=== PATIENT | male | born 1945 | race Hispanic/Latino ===

== ENCOUNTER 2016-11-14 09:04 | Inpatient (IN) | payer MEDICARE ==
[2016-11-14] MEDS ORDERED: KEPPRA 1,000 MG/NS 0.75% 100ML 1,000 MG/100 ML BAG IV ONE (09:42)
[2016-11-14] MEDS ORDERED: ZOFRAN ONE (09:59)
[2016-11-14] MEDS ORDERED: ZOFRAN IV ONE (10:06)
[2016-11-14 10:10] LABS: Basophils % (Auto) 0.4 % (0.0-1.8); Eosinophils % (Auto) 3.2 % (0.0-4.3); Hematocrit 34.2 % (35.5-45.6); Hemoglobin 11.5 gm/dl (11.8-15.2); Mean Corpuscular HGB Conc 34 % (32-34); Mean Corpuscular Hemoglobin 28 pg (28-32); Mean Corpuscular Volume 82 fl (84-94); Platelet Count 149 K/mm3 (140-440); Red Blood Count 4.18 M/mm3 (3.65-5.03); Red Cell Distribution Width 15.7 % (13.2-15.2); White Blood Count 9.6 K/mm3 (4.5-11.0)
[2016-11-14] MEDS ORDERED: ATIVAN ONE (10:12)
[2016-11-14] MEDS ORDERED: ATIVAN IV ONE (10:15)
[2016-11-14 10:20] LABS: INR 1.06 (0.87-1.13)
[2016-11-14 10:24] LABS: Anion Gap 18 mmol/L; Blood Urea Nitrogen 27 mg/dL (9-20); Calcium 9.2 mg/dL (8.4-10.2); Carbon Dioxide 18 mmol/L (22-30); Chloride 105.5 mmol/L (98-107); Glucose 130 mg/dL (75-100); Potassium 4.8 mmol/L (3.6-5.0); Sodium 137 mmol/L (137-145)
--- NOTE | 2016-11-14 10:38 | Cat Scan Report ---
CT scan of head without contrast: History: Neuro deficit. Findings: Ventricles are normal in size and midline in location. No evidence of acute ischemia, hemorrhage or mass. No extra-axial fluid collection. Mild volume loss. Normal brainstem and cerebellum. Normal sinuses and mastoid air cells. Impression: No acute intracranial abnormality.
[2016-11-14] MEDS ORDERED: NACL 0.9% 1000 ML 1,000 ML IV ONE (10:44)
[2016-11-14 10:55] LABS: Creatine Kinase MB 2.6 ng/mL (0.0-4.0)
[2016-11-14 10:57] LABS: Alanine Aminotransferase 12 units/L (7-56); Albumin 3.8 g/dL (3.9-5); Albumin/Globulin Ratio 1.1 %; Alkaline Phosphatase 58 units/L (35-129); Bilirubin,Total 0.3 mg/dL (0.1-1.2); Creatine Kinase 76 units/L (55-170); Total Protein 7.2 g/dL (6.3-8.2)
[2016-11-14 10:58] LABS: Bilirubin,Direct < 0.2 mg/dL (0-0.2)
--- NOTE | 2016-11-14 11:18 | XRay Report ---
Single view chest: History: Hypertension. Findings: Cardiomegaly. Trachea is midline. No consolidation, pneumothorax or pleural effusion. Impression: No acute cardiopulmonary findings.
[2016-11-14] MEDS ORDERED: ASPIRIN PR ONE (11:21)
--- NOTE | 2016-11-14 11:21 | Emergency Department Report ---
ED Seizure HPI - General Chief Complaint: Seizure Stated Complaint: ALTERED MENTAL STATUS Time Seen by Provider: 11/14/16 09:43 Source: family, EMS Mode of arrival: Stretcher Limitations: Altered Mental Status - History of Present Illness Initial Comments: The patient resides in an assisted living. The tennis centre manager of the assisted living called EMS because the patient was frothing and unresponsive. When the EMS arrived he didn't appear to be probably postictal but he was not any longer frothing at the mouth. Patient was unable to provide any historical information. Initially it was thought that the patient's Keppra refill from September has just been refilled and he had not been receiving it. However, the ending machine operator of the spouse tells me that "he has open bottles at home". Therefore compliance is uncertain. Material Handling Equipment Stevedore tells me that she has never seen a seizure and did not know the patient had seizures. She states that at his baseline he is able to speak coherently. He is able to ambulate using a walker despite a lack of a foot prosthesis. He has a amputation. He has a dressing on the foot that has been recently changed by a wound before and after school daycare worker. Prior to finding the patient unresponsive the ending machine operator was not aware of any illness or symptoms. Cardiac to EMS, the patient is residing in a "ordinary home converted into an assisted living". MD Complaint: seizure -: unknown Description of Episode: other (found frothing and poorly responsive) Seizure History: known seizure disorder Place: home - Related Data Home Medications Medication Instructions Recorded Confirmed Last Taken Aspirin [Aspirin BABY CHEW TAB] 81 mg PO QDAY 11/14/16 11/14/16 Unknown AtorvaSTATin [Lipitor] 20 mg PO QHS 11/14/16 11/14/16 Unknown Carvedilol [Coreg] 6.25 mg PO BID 11/14/16 11/14/16 Unknown Ferrous Sulfate [Feosol] 325 mg PO QDAY 11/14/16 11/14/16 Unknown Insulin Aspart Prot/Aspart 20 units SQ QPM 11/14/16 11/14/16 Unknown [Novolog Mix 70/30] Insulin Aspart Prot/Aspart 38 units SQ QAM 11/14/16 11/14/16 Unknown [Novolog Mix 70/30] Linagliptin [Tradjenta] 5 mg PO QDAY 11/14/16 11/14/16 Unknown Lisinopril [Zestril] 5 mg PO QDAY 11/14/16 11/14/16 Unknown Polyethylene Glycol 3350 [Miralax 17 gm PO QDAY 11/14/16 11/14/16 Unknown 3350] Tamsulosin [Flomax] 0.4 mg PO QDAY 11/14/16 11/14/16 Unknown levETIRAcetam [Keppra TAB] 500 mg PO BID 11/14/16 11/14/16 Unknown metFORMIN [Glucophage] 500 mg PO BID 11/14/16 11/14/16 Unknown Allergies Allergy/AdvReac Type Severity Reaction Status Date / Time No Known Allergies Allergy Unverified 10/10/14 16:06 ED Review of Systems ROS: Stated complaint: ALTERED MENTAL STATUS Other details as noted in HPI Comment: Unobtainable due to pts medical conditions ED Past Medical Hx - Past Medical History Hx Hypertension: Yes Hx Diabetes: Yes Hx Seizures: Yes Additional medical history: hyperlipidemia - Surgical History Additional Surgical History: R foot amputation - Social History Smoking Status: Never Smoker Substance Use Type: None - Medications Home Medications: Home Medications Medication Instructions Recorded Confirmed Last Taken Type Aspirin [Aspirin BABY CHEW TAB] 81 mg PO QDAY 11/14/16 11/14/16 Unknown History AtorvaSTATin [Lipitor] 20 mg PO QHS 11/14/16 11/14/16 Unknown History Carvedilol [Coreg] 6.25 mg PO BID 11/14/16 11/14/16 Unknown History Ferrous Sulfate [Feosol] 325 mg PO QDAY 11/14/16 11/14/16 Unknown History Insulin Aspart Prot/Aspart 20 units SQ QPM 11/14/16 11/14/16 Unknown History [Novolog Mix 70/30] Insulin Aspart Prot/Aspart 38 units SQ QAM 11/14/16 11/14/16 Unknown History [Novolog Mix 70/30] Linagliptin [Tradjenta] 5 mg PO QDAY 11/14/16 11/14/16 Unknown History Lisinopril [Zestril] 5 mg PO QDAY 11/14/16 11/14/16 Unknown History Polyethylene Glycol 3350 [Miralax 17 gm PO QDAY 11/14/16 11/14/16 Unknown History 3350] Tamsulosin [Flomax] 0.4 mg PO QDAY 11/14/16 11/14/16 Unknown History levETIRAcetam [Keppra TAB] 500 mg PO BID 11/14/16 11/14/16 Unknown History metFORMIN [Glucophage] 500 mg PO BID 11/14/16 11/14/16 Unknown History ED Physical Exam - General Limitations: Altered Mental Status General appearance: obtunded (likely able to protect airway) - Head Head exam: Present: atraumatic, normocephalic - Eye Eye exam: Present: PERRL - ENT ENT exam: Present: mucous membranes moist - Neck Neck exam: Present: normal inspection. Absent: tenderness, meningismus - Respiratory Respiratory exam: Present: normal lung sounds bilaterally. Absent: respiratory distress - Cardiovascular Cardiovascular Exam: Present: regular rate, normal rhythm. Absent: systolic murmur, diastolic murmur, rubs, gallop - GI/Abdominal GI/Abdominal exam: Present: soft, normal bowel sounds. Absent: distended, tenderness, guarding, rebound, rigid - Extremities Exam Extremities exam: Present: other (right foot amputation, no gross areas of infection either leg. Dressing present stump and not removed.) - Neurological Exam Neurological exam: Present: altered, other (exam is limited but grossly nonfocal ) - Skin Skin exam: Present: warm, dry ED Course Vital Signs 11/14/16 11/14/16 09:29 10:35 Temperature 98 F Pulse Rate 76 70 Respiratory 16 16 Rate Blood Pressure 136/75 Blood Pressure 119/56 [Left] O2 Sat by Pulse 99 99 Oximetry - Reevaluation(s) Reevaluation #1: The patient is improving as far as his level of consciousness. He is moving all extremities to stimuli. I don't note any definite focal weakness. His exam is certainly limited. He was given an aspirin suppository. His CT showed nothing acute. The onset of his condition was unknown. He was found this morning apparently postictal. He certainly would not be a candidate for TPA. So far there is no evidence of acute stroke. It is likely that he has a prolonged postictal state. He did require some Ativan to facilitate his CT. However, despite mild sedation he is waking up. The patient will be admitted by Dr. Montejo to the hospitalist service for further evaluation. He will be sent to telemetry on continuous pulse oximetry. He is now able to protect his airway. His mental status is improving. 11/14/16 11:53 ED Medical Decision Making - Lab Data Result diagrams: 11/14/16 09:45 11/14/16 09:45 - EKG Data -: EKG Interpreted by Me EKG shows normal: sinus rhythm Rate: normal - EKG Data When compared to previous EKG there are: previous EKG unavailable Interpretation: other (left anterior fascicular block/right bundle-branch block bifascicular block. Old septal infarct. Poor R-wave progression. No acute repolarization abnormality noted.) - Radiology Data Radiology results: report reviewed interpreted by me: Chest x-ray and CT the head showed no acute findings Critical care attestation.: If time is entered above; I have spent that time in minutes in the direct care of this critically ill patient, excluding procedure time. ED Disposition Clinical Impression: Postictal state, History of seizure, Recurrent seizures, Renal insufficiency, Bifascicular block Disposition: OP ADMITTED IP TO THIS HOSP Is pt being admited?: Yes Does the pt Need Aspirin: Yes Condition: Stable Referrals: PRIMARY CARE, [Primary Care Provider] - 3-5 Days Time of Disposition: 11:21
[2016-11-14] MEDS ORDERED: LOVENOX SUB-Q SCH (12:00)
--- NOTE | 2016-11-14 22:37 | History and Physical Report ---
History of Present Illness Date of examination: 11/14/16 Date of admission: 11/14/16 11:22 Chief complaint: Seizures continuos]s History of present illness: The patient resides in an assisted living. The mortgage manager of the assisted living called EMS because the patient was frothing and unresponsive. When the EMS arrived he appeared to be postictal but he was not any longer frothing at the mouth. Patient was unable to provide any historical information. Initially it was thought that the patient's Keppra refill from September has just been refilled and he had not been receiving it. However, the pattern stamper spouse tells me that "he has open bottles at home". Therefore compliance is uncertain. Pc Tech tells me that she has never seen a seizure and did not know the patient had seizures. She states that at his baseline he is able to speak coherently. He is able to ambulate using a walker despite a lack of a foot prosthesis. He has a amputation. He has a dressing on the foot that has been recently changed by a wound grounds caretaker. Prior to finding the patient unresponsive the pattern stamper was not aware of any illness or symptoms. According to EMS, the patient is residing in a "ordinary home converted into an assisted living". Past History Past Medical History: diabetes, hypertension, hyperlipidemia, seizures, other ( BPH) Past Surgical History: Other (R foot amputation) Social history: lives with family, other (Lives in assisted living facility). denies: smoking, alcohol abuse Medications and Allergies Allergies Allergy/AdvReac Type Severity Reaction Status Date / Time No Known Allergies Allergy Unverified 10/10/14 16:06 Home Medications Medication Instructions Recorded Confirmed Last Taken Type Aspirin [Aspirin BABY CHEW TAB] 81 mg PO QDAY 11/14/16 11/14/16 Unknown History AtorvaSTATin [Lipitor] 20 mg PO QHS 11/14/16 11/14/16 Unknown History Carvedilol [Coreg] 6.25 mg PO BID 11/14/16 11/14/16 Unknown History Ferrous Sulfate [Feosol] 325 mg PO QDAY 11/14/16 11/14/16 Unknown History Insulin Aspart Prot/Aspart 20 units SQ QPM 11/14/16 11/14/16 Unknown History [Novolog Mix 70/30] Insulin Aspart Prot/Aspart 38 units SQ QAM 11/14/16 11/14/16 Unknown History [Novolog Mix 70/30] Linagliptin [Tradjenta] 5 mg PO QDAY 11/14/16 11/14/16 Unknown History Lisinopril [Zestril] 5 mg PO QDAY 11/14/16 11/14/16 Unknown History Polyethylene Glycol 3350 [Miralax 17 gm PO QDAY 11/14/16 11/14/16 Unknown History 3350] Tamsulosin [Flomax] 0.4 mg PO QDAY 11/14/16 11/14/16 Unknown History levETIRAcetam [Keppra TAB] 500 mg PO BID 11/14/16 11/14/16 Unknown History metFORMIN [Glucophage] 500 mg PO BID 11/14/16 11/14/16 Unknown History Active Meds: Active Medications Enoxaparin Sodium (Lovenox) 40 mg SUB-Q QDAY@1000 MONA Review of Systems All systems: negative Constitutional: no weight loss, no weight gain Ears, nose, mouth and throat: no hoarseness, no sore throat Cardiovascular: no chest pain, no orthopnea, no palpitations, no rapid/ irregular heart beat, no syncope Respiratory: no cough with sputum, no congestion Gastrointestinal: no abdominal pain, no nausea, no vomiting, no diarrhea, no constipation Genitourinary Male: no hematuria, no flank pain, no discharge, no urinary frequency, no urinary hesitancy Musculoskeletal: no neck stiffness, no neck pain Integumentary: wounds (R leg amputation wound present), no rash (L leg hyperpigmentation pre tibial 20 cm x7 cm) Neurological: seizures, no syncope Psychiatric: no anxiety, no depression Endocrine: no cold intolerance, no heat intolerance, no polyphagia, no excessive thirst, no polydipsia, no polyuria Hematologic/Lymphatic: no easy bruising, no easy bleeding Allergic/Immunologic: no urticaria, no allergic rhinitis, no wheezing Exam - Physical Exam Narrative exam: WD WN male not postictal - Constitutional Vitals: Temp Pulse Resp BP Pulse Ox 97.6 F 66 18 129/64 98 11/14/16 20:00 11/14/16 20:00 11/14/16 20:00 11/14/16 20:00 11/14/16 20:00 General appearance: Present: no acute distress, well-nourished - EENT Eyes: Present: PERRL ENT: hearing intact, clear oral mucosa - Neck Neck: Present: supple, normal ROM - Respiratory Respiratory effort: normal Respiratory: bilateral: CTA - Cardiovascular Heart rate: 80 Rhythm: regular Heart Sounds: Present: S1 & S2. Absent: rub, click - Extremities Extremities: pulses symmetrical, No edema, abnormal (Rt foot amputation +) Peripheral Pulses: within normal limits - Abdominal General gastrointestinal: Present: soft, non-tender, non-distended, normal bowel sounds Male genitourinary: Present: normal - Integumentary Integumentary: Present: clear, warm, dry - Musculoskeletal Musculoskeletal: gait normal, strength equal bilaterally - Psychiatric Psychiatric: appropriate mood/affect, intact judgment & insight - Neurologic Neurologic: CNII-XII intact, moves all extremities - Allied Health Allied health notes reviewed: nursing, case management Results - Labs CBC & Chem 7: 11/14/16 09:45 11/15/16 09:53 Labs: Laboratory Last Values WBC 9.6 K/mm3 (4.5-11.0) 11/14/16 09:45 RBC 4.18 M/mm3 (3.65-5.03) 11/14/16 09:45 Hgb 11.5 gm/dl (11.8-15.2) L 11/14/16 09:45 Hct 34.2 % (35.5-45.6) L 11/14/16 09:45 MCV 82 fl (84-94) L 11/14/16 09:45 MCH 28 pg (28-32) 11/14/16 09:45 MCHC 34 % (32-34) 11/14/16 09:45 RDW 15.7 % (13.2-15.2) H 11/14/16 09:45 Plt Count 149 K/mm3 (140-440) 11/14/16 09:45 Lymph % (Auto) 13.5 % (13.4-35.0) 11/14/16 09:45 Swift % (Auto) 6.0 % (0.0-7.3) 11/14/16 09:45 Eos % (Auto) 3.2 % (0.0-4.3) 11/14/16 09:45 Baso % (Auto) 0.4 % (0.0-1.8) 11/14/16 09:45 Lymph # 1.3 K/mm3 (1.2-5.4) 11/14/16 09:45 Swift # 0.6 K/mm3 (0.0-0.8) 11/14/16 09:45 Eos # 0.3 K/mm3 (0.0-0.4) 11/14/16 09:45 Baso # 0.0 K/mm3 (0.0-0.1) 11/14/16 09:45 Seg Neutrophils % 76.9 % (40.0-70.0) H 11/14/16 09:45 Seg Neutrophils # 7.4 K/mm3 (1.8-7.7) 11/14/16 09:45 PT 13.7 Sec. (12.2-14.9) 11/14/16 09:45 INR 1.06 (0.87-1.13) 11/14/16 09:45 APTT 24.0 Sec. (24.2-36.6) L 11/14/16 09:45 Thrombin Time 15.8 Sec. (15.1-19.6) 11/14/16 09:45 Sodium 137 mmol/L (137-145) 11/14/16 09:45 Potassium 4.8 mmol/L (3.6-5.0) 11/14/16 09:45 Chloride 105.5 mmol/L (98-107) 11/14/16 09:45 Carbon Dioxide 18 mmol/L (22-30) L 11/14/16 09:45 Anion Gap 18 mmol/L 11/14/16 09:45 BUN 27 mg/dL (9-20) H 11/14/16 09:45 Creatinine 2.0 mg/dL (0.8-1.5) H 11/14/16 09:45 Estimated GFR 33 ml/min 11/14/16 09:45 BUN/Creatinine Ratio 13.50 % 11/14/16 09:45 Glucose 130 mg/dL (75-100) H 11/14/16 09:45 POC Glucose 98 (70-105) 11/14/16 20:58 Calcium 9.2 mg/dL (8.4-10.2) 11/14/16 09:45 Magnesium 2.0 mg/dL (1.7-2.3) 11/14/16 08:48 Total Bilirubin 0.3 mg/dL (0.1-1.2) 11/14/16 08:48 Direct Bilirubin < 0.2 mg/dL (0-0.2) 11/14/16 08:48 AST 16 units/L (5-40) 11/14/16 08:48 ALT 12 units/L (7-56) 11/14/16 08:48 Alkaline Phosphatase 58 units/L (35-129) 11/14/16 08:48 Total Creatine Kinase 76 units/L (55-170) 11/14/16 08:48 CK-MB (CK-2) 2.6 ng/mL (0.0-4.0) 11/14/16 08:48 CK-MB (CK-2) Rel Index 3.4 (0-4) 11/14/16 08:48 Troponin T < 0.010 ng/mL (0.00-0.029) 11/14/16 09:45 Total Protein 7.2 g/dL (6.3-8.2) 11/14/16 08:48 Albumin 3.8 g/dL (3.9-5) L 11/14/16 08:48 Albumin/Globulin Ratio 1.1 % 11/14/16 08:48 BMP 11/15/16 09:53 Sodium 141 Potassium 4.2 Chloride 106.3 Carbon Dioxide 22 BUN 23 H Creatinine 1.8 H Glucose 199 H Calcium 9.1 - Imaging and Cardiology EKG: report reviewed CT Scan - head: report reviewed (NAF) Assessment and Plan Advance Directives: Yes (Full code) VTE prophylaxis?: Chemical Plan of care discussed with patient/family: Yes - Patient Problems (1) Encephalopathy acute Current Visit: Yes Status: Acute Plan to address problem: Sec to postictal state.Should resolve spontaneously (2) Recurrent seizures Current Visit: Yes Status: Acute Plan to address problem: To be more compliant with Keppra.Increase Keppra to 750 q12 h (3) IDDM (insulin dependent diabetes mellitus) Current Visit: Yes Status: Chronic Plan to address problem: Cont his home insulin and coverage (4) HTN (hypertension) Current Visit: Yes Status: Chronic Qualifiers: Hypertension type: essential hypertension Qualified Code(s): I10 - Essential (primary) hypertension Plan to address problem: cont antihypertensives (5) BPH (benign prostatic hyperplasia) Current Visit: Yes Status: Chronic Qualifiers: Prostatic enlargement morphology: non-nodular Lower urinary tract symptom presence: L Plan to address problem: Cont Tamsulosin (6) Foot ulcer, right Current Visit: Yes Status: Chronic Qualifiers: Non-pressure ulcer stage: limited to breakdown of skin Qualified Code(s): L97.511 - Non-pressure chronic ulcer of other part of right foot limited to breakdown of skin Plan to address problem: Wound care (7) DVT prophylaxis Current Visit: No Status: Acute
[2016-11-14] MEDS ORDERED: DULCOLAX PR PRN (22:42)
[2016-11-14] MEDS ORDERED: ZOFRAN IV PRN (22:42)
[2016-11-14] MEDS ORDERED: MILK OF MAGNESIA PO PRN (22:42)
[2016-11-14] MEDS ORDERED: D5NS 1,000 ML IV SCH (23:00)
[2016-11-15] MEDS: NOVOLOG SUB-Q SCH ×4 (09:47→22:00)
[2016-11-15 11:05] LABS: BUN/Creatinine Ratio 12.77; Calcium 9.1 mg/dL (8.4-10.2); Chloride 106.3 mmol/L (98-107); Potassium 4.2 mmol/L (3.6-5.0)
[2016-11-15] MEDS: LOVENOX SUB-Q SCH (13:48)
[2016-11-15] MEDS: BABY ASPIRIN PO SCH (13:48)
[2016-11-15] MEDS ORDERED: HALDOL IM PRN (15:43)
--- NOTE | 2016-11-15 16:24 | Progress Note ---
Assessment and Plan Assessment and plan: 71 y/o WM with h/o diabetes, hypertension, hyperlipidemia, seizures, BPH, s/p R foot amputation resides in an assisted living brought to ER by EMS because the patient was frothing and unresponsive. Encephalopathy acute * Sec to postictal state from seizure. * PRN haldol for agitation Recurrent seizures * To be more compliant with Keppra. * Increased Keppra to 750 q12 h IDDM (insulin dependent diabetes mellitus) * Cont his home insulin coverage and ADA diet HTN (hypertension), cont antihypertensives BPH (benign prostatic hyperplasia) , Cont Tamsulosin Foot ulcer, right, Wound care DVT prophylaxis, on lovenox History Interval history: Pt seen and examined he was able to eat his lunch by himself but Got agitated and combative this afternoon, required restrain. Hospitalist Physical - Constitutional Vitals: Temp Pulse Resp BP Pulse Ox 98.2 F 50 L 20 171/77 99 11/15/16 07:30 11/15/16 07:30 11/15/16 07:30 11/15/16 07:30 11/15/16 07:30 General appearance: Present: well-nourished, other (restrained) - EENT Eyes: Present: EOM intact ENT: hearing intact, clear oral mucosa - Neck Neck: Present: supple, normal ROM - Respiratory Respiratory: bilateral: CTA - Cardiovascular Rhythm: regular Heart Sounds: Present: S1 & S2 - Extremities Extremities: No edema Extremity abnormal: other (rt foot amputated with wound dressing) Peripheral Pulses: within normal limits Results - Labs CBC & Chem 7: 11/14/16 09:45 11/15/16 09:53 Labs: Laboratory Last Values WBC 9.6 K/mm3 (4.5-11.0) 11/14/16 09:45 RBC 4.18 M/mm3 (3.65-5.03) 11/14/16 09:45 Hgb 11.5 gm/dl (11.8-15.2) L 11/14/16 09:45 Hct 34.2 % (35.5-45.6) L 11/14/16 09:45 MCV 82 fl (84-94) L 11/14/16 09:45 MCH 28 pg (28-32) 11/14/16 09:45 MCHC 34 % (32-34) 11/14/16 09:45 RDW 15.7 % (13.2-15.2) H 11/14/16 09:45 Plt Count 149 K/mm3 (140-440) 11/14/16 09:45 Lymph % (Auto) 13.5 % (13.4-35.0) 11/14/16 09:45 Howell % (Auto) 6.0 % (0.0-7.3) 11/14/16 09:45 Eos % (Auto) 3.2 % (0.0-4.3) 11/14/16 09:45 Baso % (Auto) 0.4 % (0.0-1.8) 11/14/16 09:45 Lymph # 1.3 K/mm3 (1.2-5.4) 11/14/16 09:45 Howell # 0.6 K/mm3 (0.0-0.8) 11/14/16 09:45 Eos # 0.3 K/mm3 (0.0-0.4) 11/14/16 09:45 Baso # 0.0 K/mm3 (0.0-0.1) 11/14/16 09:45 Seg Neutrophils % 76.9 % (40.0-70.0) H 11/14/16 09:45 Seg Neutrophils # 7.4 K/mm3 (1.8-7.7) 11/14/16 09:45 PT 13.7 Sec. (12.2-14.9) 11/14/16 09:45 INR 1.06 (0.87-1.13) 11/14/16 09:45 APTT 24.0 Sec. (24.2-36.6) L 11/14/16 09:45 Thrombin Time 15.8 Sec. (15.1-19.6) 11/14/16 09:45 Sodium 141 mmol/L (137-145) 11/15/16 09:53 Potassium 4.2 mmol/L (3.6-5.0) 11/15/16 09:53 Chloride 106.3 mmol/L (98-107) 11/15/16 09:53 Carbon Dioxide 22 mmol/L (22-30) 11/15/16 09:53 Anion Gap 17 mmol/L 11/15/16 09:53 BUN 23 mg/dL (9-20) H 11/15/16 09:53 Creatinine 1.8 mg/dL (0.8-1.5) H 11/15/16 09:53 Estimated GFR 37 ml/min 11/15/16 09:53 BUN/Creatinine Ratio 12.77 % 11/15/16 09:53 Glucose 199 mg/dL (75-100) H 11/15/16 09:53 POC Glucose 261 (70-105) H 11/15/16 12:12 Calcium 9.1 mg/dL (8.4-10.2) 11/15/16 09:53 Magnesium 2.0 mg/dL (1.7-2.3) 11/14/16 08:48 Total Bilirubin 0.3 mg/dL (0.1-1.2) 11/14/16 08:48 Direct Bilirubin < 0.2 mg/dL (0-0.2) 11/14/16 08:48 AST 16 units/L (5-40) 11/14/16 08:48 ALT 12 units/L (7-56) 11/14/16 08:48 Alkaline Phosphatase 58 units/L (35-129) 11/14/16 08:48 Total Creatine Kinase 76 units/L (55-170) 11/14/16 08:48 CK-MB (CK-2) 2.6 ng/mL (0.0-4.0) 11/14/16 08:48 CK-MB (CK-2) Rel Index 3.4 (0-4) 11/14/16 08:48 Troponin T < 0.010 ng/mL (0.00-0.029) 11/14/16 09:45 Total Protein 7.2 g/dL (6.3-8.2) 11/14/16 08:48 Albumin 3.8 g/dL (3.9-5) L 11/14/16 08:48 Albumin/Globulin Ratio 1.1 % 11/14/16 08:48 - Imaging and Cardiology Chest x-ray: report reviewed CT Scan - head: report reviewed
[2016-11-15] MEDS ORDERED: INSULIN ASPART PROTAMINE SQ SCH (18:00)
[2016-11-15] MEDS ORDERED: [UNRECOGNIZED DRUG - OTHER] SQ SCH (18:00)
[2016-11-15] MEDS: KEPPRA PO SCH (22:04)
[2016-11-15] MEDS: GLUCOPHAGE PO SCH (22:04)
[2016-11-15] MEDS: COREG PO SCH (22:05)
[2016-11-16] MEDS ORDERED: ZESTRIL PO SCH (10:00)
[2016-11-16] MEDS ORDERED: INSULIN ASPART PROTAMINE SQ SCH (10:00)
[2016-11-16] MEDS ORDERED: [UNRECOGNIZED DRUG - OTHER] SQ SCH (10:00)
[2016-11-16 10:19] LABS: BUN/Creatinine Ratio 12.5; Calcium 9.3 mg/dL (8.4-10.2); Chloride 101.3 mmol/L (98-107); Potassium 4.2 mmol/L (3.6-5.0)
[2016-11-16] MEDS: FLOMAX PO SCH (10:51)
[2016-11-16] MEDS: MIRALAX 3350 PO SCH (10:51)
[2016-11-16] MEDS: FEOSOL PO SCH (10:51)
[2016-11-16] MEDS: GLUCOPHAGE PO SCH ×2 (10:52→22:00)
[2016-11-16] MEDS: TRADJENTA PO SCH (10:52)
[2016-11-16] MEDS: KEPPRA PO SCH ×2 (10:52→22:08)
[2016-11-16] MEDS: BABY ASPIRIN PO SCH (10:52)
[2016-11-16] MEDS: COREG PO SCH ×2 (10:54→22:08)
[2016-11-16] MEDS: LOVENOX SUB-Q SCH (10:55)
[2016-11-16] MEDS: NOVOLOG SUB-Q SCH ×4 (10:56→22:00)
--- NOTE | 2016-11-16 15:25 | Progress Note ---
Assessment and Plan Assessment and plan: 71 y/o WM with h/o diabetes, hypertension, hyperlipidemia, seizures, BPH, s/p R foot amputation resides in an assisted living brought to ER by EMS because the patient was frothing and unresponsive. Encephalopathy acute, resolved * Sec to postictal state from seizure. * PRN haldol for agitation Recurrent seizures * likely due to noncompliance with Keppra. * Increased Keppra to 750 q12 h IDDM (insulin dependent diabetes mellitus) * Cont his home insulin coverage and ADA diet TONY, vasomotor nephropathy * baseline Cr 1.3 * cont iv fluid, monitor renal function HTN (hypertension), uncontrolled * cont antihypertensives * stop lisinopril and avoid diuretics for TONY * add procardia along with coreg BPH (benign prostatic hyperplasia) , Cont Tamsulosin Foot ulcer with amputation, right, * Wound care, PT eval DVT prophylaxis, on heparin Disposition: Assisted living facility when renal function and BP stabilizes. History Interval history: Pt seen and examined off restrain, no acute event o/n denies any chest pain Hospitalist Physical - Physical exam Narrative exam: eneral appearance: Present: no acute distress, well-nourished - EENT Eyes: Present: PERRL ENT: hearing intact, clear oral mucosa - Neck Neck: Present: supple, normal ROM - Respiratory Respiratory effort: normal Respiratory: bilateral: CTA - Cardiovascular Heart rate: 80 Rhythm: regular Heart Sounds: Present: S1 & S2. Absent: rub, click - Extremities Extremities: pulses symmetrical, No edema, abnormal (Rt foot amputation +) Peripheral Pulses: within normal limits - Abdominal General gastrointestinal: Present: soft, non-tender, non-distended, normal bowel sounds Male genitourinary: Present: normal - Integumentary Integumentary: Present: clear, warm, dry - Musculoskeletal Musculoskeletal: gait normal, strength equal bilaterally - Psychiatric Psychiatric: appropriate mood/affect, intact judgment & insight - Neurologic Neurologic: CNII-XII intact, moves all extremities - Constitutional Vitals: Temp Pulse Resp BP Pulse Ox 97.7 F 82 16 189/82 100 11/16/16 07:30 11/16/16 10:54 11/16/16 07:30 11/16/16 10:54 11/16/16 07:30 General appearance: Present: well-nourished, other (restrained) Results - Labs CBC & Chem 7: 11/14/16 09:45 11/16/16 09:27 Labs: Laboratory Last Values WBC 9.6 K/mm3 (4.5-11.0) 11/14/16 09:45 RBC 4.18 M/mm3 (3.65-5.03) 11/14/16 09:45 Hgb 11.5 gm/dl (11.8-15.2) L 11/14/16 09:45 Hct 34.2 % (35.5-45.6) L 11/14/16 09:45 MCV 82 fl (84-94) L 11/14/16 09:45 MCH 28 pg (28-32) 11/14/16 09:45 MCHC 34 % (32-34) 11/14/16 09:45 RDW 15.7 % (13.2-15.2) H 11/14/16 09:45 Plt Count 149 K/mm3 (140-440) 11/14/16 09:45 Lymph % (Auto) 13.5 % (13.4-35.0) 11/14/16 09:45 [place] % (Auto) 6.0 % (0.0-7.3) 11/14/16 09:45 Eos % (Auto) 3.2 % (0.0-4.3) 11/14/16 09:45 Baso % (Auto) 0.4 % (0.0-1.8) 11/14/16 09:45 Lymph # 1.3 K/mm3 (1.2-5.4) 11/14/16 09:45 [place] # 0.6 K/mm3 (0.0-0.8) 11/14/16 09:45 Eos # 0.3 K/mm3 (0.0-0.4) 11/14/16 09:45 Baso # 0.0 K/mm3 (0.0-0.1) 11/14/16 09:45 Seg Neutrophils % 76.9 % (40.0-70.0) H 11/14/16 09:45 Seg Neutrophils # 7.4 K/mm3 (1.8-7.7) 11/14/16 09:45 PT 13.7 Sec. (12.2-14.9) 11/14/16 09:45 INR 1.06 (0.87-1.13) 11/14/16 09:45 APTT 24.0 Sec. (24.2-36.6) L 11/14/16 09:45 Thrombin Time 15.8 Sec. (15.1-19.6) 11/14/16 09:45 Sodium 137 mmol/L (137-145) 11/16/16 09:27 Potassium 4.2 mmol/L (3.6-5.0) 11/16/16 09:27 Chloride 101.3 mmol/L (98-107) 11/16/16 09:27 Carbon Dioxide 24 mmol/L (22-30) 11/16/16 09:27 Anion Gap 16 mmol/L 11/16/16 09:27 BUN 20 mg/dL (9-20) 11/16/16 09:27 Creatinine 1.6 mg/dL (0.8-1.5) H 11/16/16 09:27 Estimated GFR 43 ml/min 11/16/16 09:27 BUN/Creatinine Ratio 12.50 % 11/16/16 09:27 Glucose 257 mg/dL (75-100) H 11/16/16 09:27 POC Glucose 254 (70-105) H 11/16/16 08:45 Calcium 9.3 mg/dL (8.4-10.2) 11/16/16 09:27 Magnesium 2.0 mg/dL (1.7-2.3) 11/14/16 08:48 Total Bilirubin 0.3 mg/dL (0.1-1.2) 11/14/16 08:48 Direct Bilirubin < 0.2 mg/dL (0-0.2) 11/14/16 08:48 AST 16 units/L (5-40) 11/14/16 08:48 ALT 12 units/L (7-56) 11/14/16 08:48 Alkaline Phosphatase 58 units/L (35-129) 11/14/16 08:48 Total Creatine Kinase 76 units/L (55-170) 11/14/16 08:48 CK-MB (CK-2) 2.6 ng/mL (0.0-4.0) 11/14/16 08:48 CK-MB (CK-2) Rel Index 3.4 (0-4) 11/14/16 08:48 Troponin T < 0.010 ng/mL (0.00-0.029) 11/14/16 09:45 Total Protein 7.2 g/dL (6.3-8.2) 11/14/16 08:48 Albumin 3.8 g/dL (3.9-5) L 11/14/16 08:48 Albumin/Globulin Ratio 1.1 % 11/14/16 08:48 - Imaging and Cardiology Chest x-ray: report reviewed CT Scan - head: report reviewed
[2016-11-16] MEDS: HEPARIN SUB-Q SCH ×2 (15:45→22:08)
[2016-11-16] MEDS ORDERED: NACL 0.9% 1000 ML 1,000 ML IV SCH (16:00)
--- NOTE | 2016-11-16 17:08 | Admit Criteria Form ---
Admission Criteria Documentation: SEIZURE Clinical Indications for Admission to Inpatient Care (Place 'X' for any and all applicable criteria): Admission is indicated for seizure and ANY ONE of the following(1)(2)(3)(4)(5): [ X]I. Inpatient admission required rather than observation care (Also use Seizure: Observation Care Criteria as appropriate) because of ANY ONE of the following: [ ]a) Altered mental status that is severe or persistent [ ]b) New focal neurologic deficit that is severe or persistent [ ]c) Metabolic disorder (eg, hypoglycemia, hyponatremia) that is severe or persistent [X ]d) Recurrent seizure [ ]e) Outpatient antiseizure regimen cannot be established (eg , patient cannot tolerate medication, initiation requires inpatient care) [ ]f) Need for ongoing intravenous infusion of antiseizure medication [ ]g) Cardiac arrhythmias of immediate concern [ ]h) Cerebral bleeding, hydrocephalus, or vasospasm monitoring (14) [ ]i) Increased intracranial pressure or cerebral edema monitoring (15) [ ]j) Other treatment or monitoring requiring inpatient admission [ ]II. Status epilepticus [A] or repetitive seizures not controlled with emergent treatment (6)(8) [ ]III. Brain disorder (eg, tumor, edema, and hydrocephalus) that requiring monitoring or intervention available only at inpatient level of care. [ ]IV. Brain insult (eg, severe trauma, stroke, drug toxicity, or withdrawal) that requires monitoring or intervention available only at inpatient level of care (10)(11) Extended stay beyond goal length of stay may be needed for (22) [ ]a) Complications of status epilepticus [ ]b) Refractory status epilepticus [ ]c) Etiology-specific therapy for conditions such as SYSTEMS MGR infection, head injury,eclampsia, severe metabolic abnormalities, and brain tumor [ ]d) Residual neurologic damage, [ ]e) Initiation of significant change to anticonvulsant treatment [ ]f) Older patients (65 years or older) [ ]g) Patient requiring intubation (eg, to protect airway) The original [facility] content created by [employer] has been revised. The portions of the content which have been revised are identified through the use of italic text or in bold, and [facility] [employer] has neither reviewed nor approved the modified material. All other unmodified content is copyright [facility]. Please see references footnoted in the original [facility] edition 2016 Admission Criteria Met: Yes
[2016-11-16] MEDS: PROCARDIA XL PO SCH (22:08)
[2016-11-17] MEDS: HEPARIN SUB-Q SCH ×3 (05:16→22:24)
[2016-11-17 07:06] LABS: Calcium 9.1 mg/dL (8.4-10.2); Chloride 102.9 mmol/L (98-107); Potassium 4.4 mmol/L (3.6-5.0)
[2016-11-17] MEDS: KEPPRA PO SCH ×2 (09:20→22:23)
[2016-11-17] MEDS: BABY ASPIRIN PO SCH (09:20)
[2016-11-17] MEDS: FLOMAX PO SCH (09:20)
[2016-11-17] MEDS: FEOSOL PO SCH (09:20)
[2016-11-17] MEDS: COREG PO SCH ×2 (09:20→22:23)
[2016-11-17] MEDS: TRADJENTA PO SCH (09:20)
[2016-11-17] MEDS: NOVOLOG SUB-Q SCH ×4 (09:21→22:37)
[2016-11-17] MEDS: PROCARDIA XL PO SCH ×2 (09:22→22:24)
[2016-11-17] MEDS: MIRALAX 3350 PO SCH (09:22)
[2016-11-17] MEDS: GLUCOPHAGE PO SCH ×2 (09:22→22:24)
--- NOTE | 2016-11-17 15:37 | Progress Note ---
Assessment and Plan Assessment and plan: 71 y/o WM with h/o diabetes, hypertension, hyperlipidemia, seizures, BPH, s/p R foot amputation resides in an assisted living brought to ER by EMS because the patient was frothing and unresponsive. Encephalopathy acute, resolved * Sec to postictal state from seizure. * PRN haldol for agitation Recurrent seizures * likely due to noncompliance with Keppra. * Increased Keppra to 750 q12 h IDDM (insulin dependent diabetes mellitus) * Cont his home insulin coverage and ADA diet TONY, vasomotor nephropathy * baseline Cr 1.3 * cont iv fluid, monitor renal function HTN (hypertension), uncontrolled * cont antihypertensives * stop lisinopril and avoid diuretics for TONY * add procardia along with coreg BPH (benign prostatic hyperplasia) , Cont Tamsulosin Foot ulcer with amputation, right, * Wound care, PT eval DVT prophylaxis, on heparin Disposition: Assisted living facility when renal function and BP stabilizes. Awaiting insurance pre-authorization History Interval history: Patient seen and examined. Follow up on altered mental status which has resolved. Overnight uneventful. No cp, sob, n/v or severe headaches. Imaging, old records, testing, labs, nursing notes reviewed. Plan discussed with patient. Hospitalist Physical - Physical exam Narrative exam: GEN: WDWN, NAD, AWAKE, ALERT, ORIENTATED 3 HEENT: NCAT, PERRL, EOMI, OP CLEAR NECK: SUPPLE, NO THYROMEGALY, NO JVD, NO LAD CVS: RRR, NORMAL S1S2 LUNGS/CHEST: CTA B, NORMAL CHEST EXPANSION B, GOOD AIR ENTRY B ABD: SOFT NTND, GBS, NO REBOUND OR GUARDING EXT/SKIN: NO SIGNIFICANT EDEMA OR RASH MSK: FROM X 4 EXTREMITIES NEURO: CN 2-12 GROSSLY INTACT, NO new FOCAL DEFICITS PSY: CALM - Constitutional Vitals: Temp Pulse Resp BP Pulse Ox 97.6 F 66 18 113/65 96 11/17/16 09:01 11/17/16 14:11 11/17/16 14:11 11/17/16 14:11 11/17/16 09:01 General appearance: Present: well-nourished Results - Labs CBC & Chem 7: 11/14/16 09:45 11/17/16 06:14 Labs: Laboratory Last Values WBC 9.6 K/mm3 (4.5-11.0) 11/14/16 09:45 RBC 4.18 M/mm3 (3.65-5.03) 11/14/16 09:45 Hgb 11.5 gm/dl (11.8-15.2) L 11/14/16 09:45 Hct 34.2 % (35.5-45.6) L 11/14/16 09:45 MCV 82 fl (84-94) L 11/14/16 09:45 MCH 28 pg (28-32) 11/14/16 09:45 MCHC 34 % (32-34) 11/14/16 09:45 RDW 15.7 % (13.2-15.2) H 11/14/16 09:45 Plt Count 149 K/mm3 (140-440) 11/14/16 09:45 Lymph % (Auto) 13.5 % (13.4-35.0) 11/14/16 09:45 [place] % (Auto) 6.0 % (0.0-7.3) 11/14/16 09:45 Eos % (Auto) 3.2 % (0.0-4.3) 11/14/16 09:45 Baso % (Auto) 0.4 % (0.0-1.8) 11/14/16 09:45 Lymph # 1.3 K/mm3 (1.2-5.4) 11/14/16 09:45 [place] # 0.6 K/mm3 (0.0-0.8) 11/14/16 09:45 Eos # 0.3 K/mm3 (0.0-0.4) 11/14/16 09:45 Baso # 0.0 K/mm3 (0.0-0.1) 11/14/16 09:45 Seg Neutrophils % 76.9 % (40.0-70.0) H 11/14/16 09:45 Seg Neutrophils # 7.4 K/mm3 (1.8-7.7) 11/14/16 09:45 PT 13.7 Sec. (12.2-14.9) 11/14/16 09:45 INR 1.06 (0.87-1.13) 11/14/16 09:45 APTT 24.0 Sec. (24.2-36.6) L 11/14/16 09:45 Thrombin Time 15.8 Sec. (15.1-19.6) 11/14/16 09:45 Sodium 139 mmol/L (137-145) 11/17/16 06:14 Potassium 4.4 mmol/L (3.6-5.0) 11/17/16 06:14 Chloride 102.9 mmol/L (98-107) 11/17/16 06:14 Carbon Dioxide 21 mmol/L (22-30) L 11/17/16 06:14 Anion Gap 20 mmol/L 11/17/16 06:14 BUN 21 mg/dL (9-20) H 11/17/16 06:14 Creatinine 1.5 mg/dL (0.8-1.5) 11/17/16 06:14 Estimated GFR 46 ml/min 11/17/16 06:14 BUN/Creatinine Ratio 14.00 % 11/17/16 06:14 Glucose 154 mg/dL (75-100) H 11/17/16 06:14 POC Glucose 65 (70-105) L 11/16/16 21:48 Calcium 9.1 mg/dL (8.4-10.2) 11/17/16 06:14 Magnesium 2.0 mg/dL (1.7-2.3) 11/14/16 08:48 Total Bilirubin 0.3 mg/dL (0.1-1.2) 11/14/16 08:48 Direct Bilirubin < 0.2 mg/dL (0-0.2) 11/14/16 08:48 AST 16 units/L (5-40) 11/14/16 08:48 ALT 12 units/L (7-56) 11/14/16 08:48 Alkaline Phosphatase 58 units/L (35-129) 11/14/16 08:48 Total Creatine Kinase 76 units/L (55-170) 11/14/16 08:48 CK-MB (CK-2) 2.6 ng/mL (0.0-4.0) 11/14/16 08:48 CK-MB (CK-2) Rel Index 3.4 (0-4) 11/14/16 08:48 Troponin T < 0.010 ng/mL (0.00-0.029) 11/14/16 09:45 Total Protein 7.2 g/dL (6.3-8.2) 11/14/16 08:48 Albumin 3.8 g/dL (3.9-5) L 11/14/16 08:48 Albumin/Globulin Ratio 1.1 % 11/14/16 08:48 Levetiracetam <1.0 mcg/mL 11/14/16 09:45
[2016-11-18] MEDS: HEPARIN SUB-Q SCH ×3 (06:50→22:11)
[2016-11-18] MEDS: NOVOLOG SUB-Q SCH ×4 (08:34→22:18)
[2016-11-18] MEDS: GLUCOPHAGE PO SCH ×2 (10:14→22:01)
[2016-11-18] MEDS: KEPPRA PO SCH ×2 (10:14→22:01)
[2016-11-18] MEDS: COREG PO SCH ×2 (10:14→22:01)
[2016-11-18] MEDS: FEOSOL PO SCH (10:14)
[2016-11-18] MEDS: BABY ASPIRIN PO SCH (10:14)
[2016-11-18] MEDS: FLOMAX PO SCH (10:14)
[2016-11-18] MEDS: MIRALAX 3350 PO SCH (10:15)
[2016-11-18] MEDS: TRADJENTA PO SCH (10:15)
[2016-11-18] MEDS: PROCARDIA XL PO SCH ×2 (10:15→22:01)
[2016-11-18] MEDS: TYLENOL PO PRN (11:55)
--- NOTE | 2016-11-18 12:33 | Progress Note ---
Assessment and Plan Assessment and plan: 71 y/o WM with h/o diabetes, hypertension, hyperlipidemia, seizures, BPH, s/p R foot amputation resides in an assisted living brought to ER by EMS because the patient was frothing and unresponsive. Encephalopathy acute, resolved * Sec to postictal state from seizure. * PRN haldol for agitation Recurrent seizures * likely due to noncompliance with Keppra. * Increased Keppra to 750 q12 h IDDM (insulin dependent diabetes mellitus) * Cont his home insulin coverage and ADA diet TONY, vasomotor nephropathy * baseline Cr 1.3 * cont iv fluid, monitor renal function HTN (hypertension), uncontrolled * cont antihypertensives * stop lisinopril and avoid diuretics for TONY * add procardia along with coreg BPH (benign prostatic hyperplasia) , Cont Tamsulosin Foot ulcer with amputation, right, * Wound care, PT eval DVT prophylaxis, on heparin Disposition: Assisted living facility when renal function and BP stabilizes. Awaiting insurance pre-authorization History Interval history: Patient seen and examined. Follow up on altered mental status which has resolved. Overnight uneventful. No cp, sob, n/v or severe headaches. Imaging, old records, testing, labs, nursing notes reviewed. Plan discussed with patient. Hospitalist Physical - Physical exam Narrative exam: GEN: WDWN, NAD, AWAKE, ALERT, ORIENTATED 3 HEENT: NCAT, PERRL, EOMI, OP CLEAR NECK: SUPPLE, NO THYROMEGALY, NO JVD, NO LAD CVS: RRR, NORMAL S1S2 LUNGS/CHEST: CTA B, NORMAL CHEST EXPANSION B, GOOD AIR ENTRY B ABD: SOFT NTND, GBS, NO REBOUND OR GUARDING EXT/SKIN: NO SIGNIFICANT EDEMA OR RASH MSK: FROM X 4 EXTREMITIES NEURO: CN 2-12 GROSSLY INTACT, NO new FOCAL DEFICITS PSY: CALM - Constitutional Vitals: Temp Pulse Resp BP Pulse Ox 97.7 F 66 22 100/57 96 11/18/16 08:10 11/18/16 08:10 11/18/16 08:10 11/18/16 08:10 11/18/16 08:10 General appearance: Present: well-nourished Results - Labs CBC & Chem 7: 11/14/16 09:45 11/17/16 06:14 Labs: Laboratory Last Values WBC 9.6 K/mm3 (4.5-11.0) 11/14/16 09:45 RBC 4.18 M/mm3 (3.65-5.03) 11/14/16 09:45 Hgb 11.5 gm/dl (11.8-15.2) L 11/14/16 09:45 Hct 34.2 % (35.5-45.6) L 11/14/16 09:45 MCV 82 fl (84-94) L 11/14/16 09:45 MCH 28 pg (28-32) 11/14/16 09:45 MCHC 34 % (32-34) 11/14/16 09:45 RDW 15.7 % (13.2-15.2) H 11/14/16 09:45 Plt Count 149 K/mm3 (140-440) 11/14/16 09:45 Lymph % (Auto) 13.5 % (13.4-35.0) 11/14/16 09:45 [place] % (Auto) 6.0 % (0.0-7.3) 11/14/16 09:45 Eos % (Auto) 3.2 % (0.0-4.3) 11/14/16 09:45 Baso % (Auto) 0.4 % (0.0-1.8) 11/14/16 09:45 Lymph # 1.3 K/mm3 (1.2-5.4) 11/14/16 09:45 [place] # 0.6 K/mm3 (0.0-0.8) 11/14/16 09:45 Eos # 0.3 K/mm3 (0.0-0.4) 11/14/16 09:45 Baso # 0.0 K/mm3 (0.0-0.1) 11/14/16 09:45 Seg Neutrophils % 76.9 % (40.0-70.0) H 11/14/16 09:45 Seg Neutrophils # 7.4 K/mm3 (1.8-7.7) 11/14/16 09:45 PT 13.7 Sec. (12.2-14.9) 11/14/16 09:45 INR 1.06 (0.87-1.13) 11/14/16 09:45 APTT 24.0 Sec. (24.2-36.6) L 11/14/16 09:45 Thrombin Time 15.8 Sec. (15.1-19.6) 11/14/16 09:45 Sodium 139 mmol/L (137-145) 11/17/16 06:14 Potassium 4.4 mmol/L (3.6-5.0) 11/17/16 06:14 Chloride 102.9 mmol/L (98-107) 11/17/16 06:14 Carbon Dioxide 21 mmol/L (22-30) L 11/17/16 06:14 Anion Gap 20 mmol/L 11/17/16 06:14 BUN 21 mg/dL (9-20) H 11/17/16 06:14 Creatinine 1.5 mg/dL (0.8-1.5) 11/17/16 06:14 Estimated GFR 46 ml/min 11/17/16 06:14 BUN/Creatinine Ratio 14.00 % 11/17/16 06:14 Glucose 154 mg/dL (75-100) H 11/17/16 06:14 POC Glucose 149 (70-105) H 11/18/16 08:13 Calcium 9.1 mg/dL (8.4-10.2) 11/17/16 06:14 Magnesium 2.0 mg/dL (1.7-2.3) 11/14/16 08:48 Total Bilirubin 0.3 mg/dL (0.1-1.2) 11/14/16 08:48 Direct Bilirubin < 0.2 mg/dL (0-0.2) 11/14/16 08:48 AST 16 units/L (5-40) 11/14/16 08:48 ALT 12 units/L (7-56) 11/14/16 08:48 Alkaline Phosphatase 58 units/L (35-129) 11/14/16 08:48 Total Creatine Kinase 76 units/L (55-170) 11/14/16 08:48 CK-MB (CK-2) 2.6 ng/mL (0.0-4.0) 11/14/16 08:48 CK-MB (CK-2) Rel Index 3.4 (0-4) 11/14/16 08:48 Troponin T < 0.010 ng/mL (0.00-0.029) 11/14/16 09:45 Total Protein 7.2 g/dL (6.3-8.2) 11/14/16 08:48 Albumin 3.8 g/dL (3.9-5) L 11/14/16 08:48 Albumin/Globulin Ratio 1.1 % 11/14/16 08:48 Levetiracetam <1.0 mcg/mL 11/14/16 09:45
[2016-11-19] MEDS: TYLENOL PO PRN (03:33)
[2016-11-19] MEDS: HEPARIN SUB-Q SCH ×3 (06:42→21:44)
[2016-11-19] MEDS: NOVOLOG SUB-Q SCH ×4 (08:00→22:37)
[2016-11-19] MEDS: BABY ASPIRIN PO SCH (10:27)
[2016-11-19] MEDS: PROCARDIA XL PO SCH ×2 (10:27→21:43)
[2016-11-19] MEDS: COREG PO SCH ×2 (10:27→21:43)
[2016-11-19] MEDS: FEOSOL PO SCH (10:27)
[2016-11-19] MEDS: KEPPRA PO SCH ×2 (10:27→21:43)
[2016-11-19] MEDS: FLOMAX PO SCH (10:27)
[2016-11-19] MEDS: TRADJENTA PO SCH (10:27)
[2016-11-19] MEDS: MIRALAX 3350 PO SCH (10:27)
[2016-11-19] MEDS: GLUCOPHAGE PO SCH ×2 (10:28→21:43)
--- NOTE | 2016-11-19 12:54 | Progress Note ---
Assessment and Plan Assessment and plan: 71 y/o WM with h/o diabetes, hypertension, hyperlipidemia, seizures, BPH, s/p R foot amputation resides in an assisted living brought to ER by EMS because the patient was frothing and unresponsive. Encephalopathy acute, resolved * Sec to postictal state from seizure. * PRN haldol for agitation Recurrent seizures * likely due to noncompliance with Keppra. * Increased Keppra to 750 q12 h IDDM (insulin dependent diabetes mellitus) * Cont his home insulin coverage and ADA diet TONY, vasomotor nephropathy * baseline Cr 1.3 * cont iv fluid, monitor renal function HTN (hypertension), uncontrolled * cont antihypertensives * stop lisinopril and avoid diuretics for TONY * add procardia along with coreg BPH (benign prostatic hyperplasia) , Cont Tamsulosin Foot ulcer with amputation, right, * Wound care, PT eval DVT prophylaxis, on heparin Disposition: Assisted living facility when renal function and BP stabilizes. Awaiting insurance pre-authorization History Interval history: Patient seen and examined. Follow up on altered mental status which has resolved. Overnight uneventful. No cp, sob, n/v or severe headaches. Imaging, old records, testing, labs, nursing notes reviewed. Plan discussed with patient. Hospitalist Physical - Physical exam Narrative exam: GEN: WDWN, NAD, AWAKE, ALERT, ORIENTATED 3 HEENT: NCAT, PERRL, EOMI, OP CLEAR NECK: SUPPLE, NO THYROMEGALY, NO JVD, NO LAD CVS: RRR, NORMAL S1S2 LUNGS/CHEST: CTA B, NORMAL CHEST EXPANSION B, GOOD AIR ENTRY B ABD: SOFT NTND, GBS, NO REBOUND OR GUARDING EXT/SKIN: NO SIGNIFICANT EDEMA OR RASH MSK: FROM X 4 EXTREMITIES NEURO: CN 2-12 GROSSLY INTACT, NO new FOCAL DEFICITS PSY: CALM - Constitutional Vitals: Temp Pulse Resp BP Pulse Ox 98.8 F 54 L 12 101/58 96 11/19/16 09:00 11/19/16 09:00 11/19/16 09:00 11/19/16 09:00 11/19/16 09:00 General appearance: Present: well-nourished Results - Labs CBC & Chem 7: 11/14/16 09:45 11/17/16 06:14 Labs: Laboratory Last Values WBC 9.6 K/mm3 (4.5-11.0) 11/14/16 09:45 RBC 4.18 M/mm3 (3.65-5.03) 11/14/16 09:45 Hgb 11.5 gm/dl (11.8-15.2) L 11/14/16 09:45 Hct 34.2 % (35.5-45.6) L 11/14/16 09:45 MCV 82 fl (84-94) L 11/14/16 09:45 MCH 28 pg (28-32) 11/14/16 09:45 MCHC 34 % (32-34) 11/14/16 09:45 RDW 15.7 % (13.2-15.2) H 11/14/16 09:45 Plt Count 149 K/mm3 (140-440) 11/14/16 09:45 Lymph % (Auto) 13.5 % (13.4-35.0) 11/14/16 09:45 [place] % (Auto) 6.0 % (0.0-7.3) 11/14/16 09:45 Eos % (Auto) 3.2 % (0.0-4.3) 11/14/16 09:45 Baso % (Auto) 0.4 % (0.0-1.8) 11/14/16 09:45 Lymph # 1.3 K/mm3 (1.2-5.4) 11/14/16 09:45 [place] # 0.6 K/mm3 (0.0-0.8) 11/14/16 09:45 Eos # 0.3 K/mm3 (0.0-0.4) 11/14/16 09:45 Baso # 0.0 K/mm3 (0.0-0.1) 11/14/16 09:45 Seg Neutrophils % 76.9 % (40.0-70.0) H 11/14/16 09:45 Seg Neutrophils # 7.4 K/mm3 (1.8-7.7) 11/14/16 09:45 PT 13.7 Sec. (12.2-14.9) 11/14/16 09:45 INR 1.06 (0.87-1.13) 11/14/16 09:45 APTT 24.0 Sec. (24.2-36.6) L 11/14/16 09:45 Thrombin Time 15.8 Sec. (15.1-19.6) 11/14/16 09:45 Sodium 139 mmol/L (137-145) 11/17/16 06:14 Potassium 4.4 mmol/L (3.6-5.0) 11/17/16 06:14 Chloride 102.9 mmol/L (98-107) 11/17/16 06:14 Carbon Dioxide 21 mmol/L (22-30) L 11/17/16 06:14 Anion Gap 20 mmol/L 11/17/16 06:14 BUN 21 mg/dL (9-20) H 11/17/16 06:14 Creatinine 1.5 mg/dL (0.8-1.5) 11/17/16 06:14 Estimated GFR 46 ml/min 11/17/16 06:14 BUN/Creatinine Ratio 14.00 % 11/17/16 06:14 Glucose 154 mg/dL (75-100) H 11/17/16 06:14 POC Glucose 202 (70-105) H 11/19/16 07:22 Calcium 9.1 mg/dL (8.4-10.2) 11/17/16 06:14 Magnesium 2.0 mg/dL (1.7-2.3) 11/14/16 08:48 Total Bilirubin 0.3 mg/dL (0.1-1.2) 11/14/16 08:48 Direct Bilirubin < 0.2 mg/dL (0-0.2) 11/14/16 08:48 AST 16 units/L (5-40) 11/14/16 08:48 ALT 12 units/L (7-56) 11/14/16 08:48 Alkaline Phosphatase 58 units/L (35-129) 11/14/16 08:48 Total Creatine Kinase 76 units/L (55-170) 11/14/16 08:48 CK-MB (CK-2) 2.6 ng/mL (0.0-4.0) 11/14/16 08:48 CK-MB (CK-2) Rel Index 3.4 (0-4) 11/14/16 08:48 Troponin T < 0.010 ng/mL (0.00-0.029) 11/14/16 09:45 Total Protein 7.2 g/dL (6.3-8.2) 11/14/16 08:48 Albumin 3.8 g/dL (3.9-5) L 11/14/16 08:48 Albumin/Globulin Ratio 1.1 % 11/14/16 08:48 Levetiracetam <1.0 mcg/mL 11/14/16 09:45
[2016-11-20] MEDS: HEPARIN SUB-Q SCH ×2 (06:24→15:55)
[2016-11-20] MEDS: NOVOLOG SUB-Q SCH ×3 (08:47→18:25)
[2016-11-20] MEDS: PROCARDIA XL PO SCH (11:07)
[2016-11-20] MEDS: GLUCOPHAGE PO SCH (11:07)
[2016-11-20] MEDS: KEPPRA PO SCH (11:07)
[2016-11-20] MEDS: COREG PO SCH (11:07)
[2016-11-20] MEDS: FEOSOL PO SCH (11:07)
[2016-11-20] MEDS: TRADJENTA PO SCH (11:07)
[2016-11-20] MEDS: BABY ASPIRIN PO SCH (11:07)
[2016-11-20] MEDS: FLOMAX PO SCH (11:07)
[2016-11-20] MEDS: MIRALAX 3350 PO SCH (11:07)
--- NOTE | 2016-11-20 14:03 | Progress Note ---
Assessment and Plan Assessment and plan: Patient is a 71-year-old man with a history of diabetes mellitus type 2 with peripheral arterial disease status post right foot amputation, hypertension, dyslipidemia and seizure disorder who presented with altered mental status after seizure episode. Encephalopathy acute, resolved * Sec to postictal state from seizure. * PRN haldol for agitation Recurrent seizures * likely due to noncompliance with Keppra. * Increased Keppra to 750 q12 h IDDM (insulin dependent diabetes mellitus) * Cont his home insulin coverage and ADA diet TONY, vasomotor nephropathy * baseline Cr 1.3 * cont iv fluid, monitor renal function HTN (hypertension), uncontrolled * cont antihypertensives * stop lisinopril and avoid diuretics for TONY * add procardia along with coreg BPH (benign prostatic hyperplasia) , Cont. Tamsulosin Foot ulcer with amputation, right, * Wound care, PT eval DVT prophylaxis, on heparin Disposition: Assisted living facility when renal function and BP stabilizes. Awaiting insurance pre-authorization==> [employer] has denied hospitalization and SNF, so i called [phone] for peer to peer and spoke with Korina. They have until end of wednesday business . Info has been forward to their medical reception. History Interval history: Patient seen and examined. Follow up on altered mental status which has resolved. Overnight uneventful. No cp, sob, n/v or severe headaches. Imaging, old records, testing, labs, nursing notes reviewed. Plan discussed with patient. Hospitalist Physical - Physical exam Narrative exam: GEN: WDWN, NAD, AWAKE, ALERT, ORIENTATED 3 HEENT: NCAT, PERRL, EOMI, OP CLEAR NECK: SUPPLE, NO THYROMEGALY, NO JVD, NO LAD CVS: RRR, NORMAL S1S2 LUNGS/CHEST: CTA B, NORMAL CHEST EXPANSION B, GOOD AIR ENTRY B ABD: SOFT NTND, GBS, NO REBOUND OR GUARDING EXT/SKIN: NO SIGNIFICANT EDEMA OR RASH MSK: FROM X 4 EXTREMITIES NEURO: CN 2-12 GROSSLY INTACT, NO new FOCAL DEFICITS PSY: CALM - Constitutional Vitals: Temp Pulse Resp BP Pulse Ox 97.8 F 70 20 150/78 95 11/20/16 12:00 11/20/16 12:00 11/20/16 12:00 11/20/16 12:00 11/20/16 12:00 General appearance: Present: well-nourished Results - Labs CBC & Chem 7: 11/14/16 09:45 11/17/16 06:14 Labs: Laboratory Last Values WBC 9.6 K/mm3 (4.5-11.0) 11/14/16 09:45 RBC 4.18 M/mm3 (3.65-5.03) 11/14/16 09:45 Hgb 11.5 gm/dl (11.8-15.2) L 11/14/16 09:45 Hct 34.2 % (35.5-45.6) L 11/14/16 09:45 MCV 82 fl (84-94) L 11/14/16 09:45 MCH 28 pg (28-32) 11/14/16 09:45 MCHC 34 % (32-34) 11/14/16 09:45 RDW 15.7 % (13.2-15.2) H 11/14/16 09:45 Plt Count 149 K/mm3 (140-440) 11/14/16 09:45 Lymph % (Auto) 13.5 % (13.4-35.0) 11/14/16 09:45 [place] % (Auto) 6.0 % (0.0-7.3) 11/14/16 09:45 Eos % (Auto) 3.2 % (0.0-4.3) 11/14/16 09:45 Baso % (Auto) 0.4 % (0.0-1.8) 11/14/16 09:45 Lymph # 1.3 K/mm3 (1.2-5.4) 11/14/16 09:45 [place] # 0.6 K/mm3 (0.0-0.8) 11/14/16 09:45 Eos # 0.3 K/mm3 (0.0-0.4) 11/14/16 09:45 Baso # 0.0 K/mm3 (0.0-0.1) 11/14/16 09:45 Seg Neutrophils % 76.9 % (40.0-70.0) H 11/14/16 09:45 Seg Neutrophils # 7.4 K/mm3 (1.8-7.7) 11/14/16 09:45 PT 13.7 Sec. (12.2-14.9) 11/14/16 09:45 INR 1.06 (0.87-1.13) 11/14/16 09:45 APTT 24.0 Sec. (24.2-36.6) L 11/14/16 09:45 Thrombin Time 15.8 Sec. (15.1-19.6) 11/14/16 09:45 Sodium 139 mmol/L (137-145) 11/17/16 06:14 Potassium 4.4 mmol/L (3.6-5.0) 11/17/16 06:14 Chloride 102.9 mmol/L (98-107) 11/17/16 06:14 Carbon Dioxide 21 mmol/L (22-30) L 11/17/16 06:14 Anion Gap 20 mmol/L 11/17/16 06:14 BUN 21 mg/dL (9-20) H 11/17/16 06:14 Creatinine 1.5 mg/dL (0.8-1.5) 11/17/16 06:14 Estimated GFR 46 ml/min 11/17/16 06:14 BUN/Creatinine Ratio 14.00 % 11/17/16 06:14 Glucose 154 mg/dL (75-100) H 11/17/16 06:14 POC Glucose 231 (70-105) H 11/19/16 21:37 Calcium 9.1 mg/dL (8.4-10.2) 11/17/16 06:14 Magnesium 2.0 mg/dL (1.7-2.3) 11/14/16 08:48 Total Bilirubin 0.3 mg/dL (0.1-1.2) 11/14/16 08:48 Direct Bilirubin < 0.2 mg/dL (0-0.2) 11/14/16 08:48 AST 16 units/L (5-40) 11/14/16 08:48 ALT 12 units/L (7-56) 11/14/16 08:48 Alkaline Phosphatase 58 units/L (35-129) 11/14/16 08:48 Total Creatine Kinase 76 units/L (55-170) 11/14/16 08:48 CK-MB (CK-2) 2.6 ng/mL (0.0-4.0) 11/14/16 08:48 CK-MB (CK-2) Rel Index 3.4 (0-4) 11/14/16 08:48 Troponin T < 0.010 ng/mL (0.00-0.029) 11/14/16 09:45 Total Protein 7.2 g/dL (6.3-8.2) 11/14/16 08:48 Albumin 3.8 g/dL (3.9-5) L 11/14/16 08:48 Albumin/Globulin Ratio 1.1 % 11/14/16 08:48 Levetiracetam <1.0 mcg/mL 11/14/16 09:45
--- NOTE | 2016-11-20 14:11 | Discharge Summary ---
Providers - Providers Date of Admission: 11/14/16 11:22 Date of discharge: 11/20/16 Attending physician: JEAN PETERSON 11/15/16 16:51 Consult to Wound/ET Nurse [CONS] Routine Reason For Exam: wound eval 11/16/16 10:16 Physical Therapy Evaluation and Treat [CONS] Routine Comment: Reason For Exam: ambulation Primary care physician: [employer] Hospitalization Condition: Stable Hospital course: Patient is a 71-year-old man with a history of diabetes mellitus type 2 with peripheral arterial disease status post right foot amputation, hypertension, dyslipidemia and seizure disorder who presented with altered mental status after seizure episode. Encephalopathy acute, resolved * Sec to postictal state from seizure. * PRN haldol for agitation Recurrent seizures * likely due to noncompliance with Keppra. * Increased Keppra to 750 q12 h IDDM (insulin dependent diabetes mellitus) * Cont his home insulin coverage and ADA diet TONY, vasomotor nephropathy * baseline Cr 1.3 * cont iv fluid, monitor renal function HTN (hypertension), uncontrolled * cont antihypertensives * stop lisinopril and avoid diuretics for TONY * add procardia along with coreg BPH (benign prostatic hyperplasia) , Cont. Tamsulosin Foot ulcer with amputation, right, * Wound care, PT eval DVT prophylaxis, on heparin Disposition: Assisted living facility when renal function and BP stabilizes. Awaiting insurance pre-authorization==> [employer] has denied hospitalization and SNF, so i called [phone] for peer to peer and spoke with Korina. They have until end of wednesday business day. Info has been forward to their medical care manager. Since insurance will not approve for SNF, family will come and get him Disposition: [place] HOME UNDER HOME HEALTH Core Measure Documentation - Palliative Care Palliative Care/ Comfort Measures: Not Applicable - Core Measures Any of the following diagnoses?: none - VTE Discharge Requirements Deep Vein Thrombosis/Pulmonary Embolism Present on Admission: No Has pt received <5 days of overlap therapy or INR<2.0: No Anticoagulant overlap therapy prescribed at discharge: No Contraindication No Overlap Therapy order at DC: Not Indicated Exam - Physical Exam Narrative exam: GEN: WDWN, NAD, AWAKE, ALERT, ORIENTATED 3 HEENT: NCAT, PERRL, EOMI, OP CLEAR NECK: SUPPLE, NO THYROMEGALY, NO JVD, NO LAD CVS: RRR, NORMAL S1S2 LUNGS/CHEST: CTA B, NORMAL CHEST EXPANSION B, GOOD AIR ENTRY B ABD: SOFT NTND, GBS, NO REBOUND OR GUARDING EXT/SKIN: NO SIGNIFICANT EDEMA OR RASH MSK: FROM X 4 EXTREMITIES NEURO: CN 2-12 GROSSLY INTACT, NO new FOCAL DEFICITS PSY: CALM - Constitutional Vitals: Temp Pulse Resp BP Pulse Ox 97.8 F 70 20 150/78 95 11/20/16 12:00 11/20/16 12:00 11/20/16 12:00 11/20/16 12:00 11/20/16 12:00 Plan Activity: up only with assistance, other (no strenous activites until cleared by PCP. ) Diet: low salt, diabetic Special Instructions: home health RN Follow up with: PRIMARY CARE, [Primary Care Provider] - 3-5 Days Prescriptions: levETIRAcetam [Keppra TAB] 500 mg PO BID #60 tablet
[2016-11-20 21:15] VITALS: BP 126/77
== END 2016-11-20 21:15 | disposition home health service (06) | DRG 100 ==
LOC: ED 09:04 → 4A 11:22
PROVIDERS: ADMIT Internal Medicine; ATTEND Internal Medicine
DX: G40.909 Epilepsy, unspecified, not intractable, without status epilepticus (principal); N17.0 Acute kidney failure with tubular necrosis; G93.40 Encephalopathy, unspecified; I10 Essential (primary) hypertension; N40.0 Benign prostatic hyperplasia without lower urinary tract symptoms; L97.519 Non-pressure chronic ulcer of other part of right foot with unspecified severity; E78.5 Hyperlipidemia, unspecified; E11.621 Type 2 diabetes mellitus with foot ulcer; E11.51 Type 2 diabetes mellitus with diabetic peripheral angiopathy without gangrene; Z89.431 Acquired absence of right foot; Z79.4 Long term (current) use of insulin
CPT/HCPCS: 36415; 70450; 71010; 80048; 80074; 80177; 82550; 82553; 82962; 83735; 84484; 85025; 85610; 85670; 85730; 93005; 93010; 96365; 96375; A9270-GY; J1630; J1644; J1650; J1815; J1953; J2060; J2405; J7030